=== PATIENT | male | born 1955 | race Caucasian/White ===

== ENCOUNTER 2016-11-24 11:57 | Emergency (ER) | payer MEDICARE ==
[~2016-11-24] VITALS: Ht 177.8 cm; Wt 88.5 kg
[2016-11-24 12:00] VITALS: BP 144/66
--- NOTE | 2016-11-24 12:47 | RAD ---
Indication injury, pain. AP oblique and lateral views of the right ankle were obtained. No bony abnormality is seen.
--- NOTE | 2016-11-24 13:30 | ED.ADGEN ---
Past History Past Medical History: CAD, Cancer, Hypertension Past Surgical History: Coronary Bypass Surgery Alcohol Use: Occasionally Drug Use: None Adult General Chief Complaint Chief Complaint Right ankle/foot injury HPI HPI Patient is a 61-year-old male presents with right foot injury. Patient states he inverted right ankle yesterday while getting out of shower. Patient reports pain with ambulation, continued swelling and pain. Although symptoms have improved since yesterday. Patient denies though she injury. He recently relocated from [place] to the [facility] and has yet to establish with a PCP. Review of Systems Review of Systems Review symptoms as per history of present illness. Physical Exam Physical Exam Constitutional: Well developed, well nourished, no acute distress, non-toxic appearance. Extremities: Right foot, right medial ankle and midfoot pain, tenderness, swelling with mild erythema. No bony TTP or deformity. ROM intact. Neurologic: Alert and oriented X 3, normal motor function, normal sensory function, no focal deficits noted. Psychologic: Affect normal, judgement normal, mood normal. Current Patient Data Vital Signs Vital Signs Date Time Temp Pulse Resp B/P (MAP) Pulse Ox O2 Delivery O2 Flow Rate FiO2 11/24/16 12:00 97.6 66 16 95 Room Air EKG EKG [] Radiology/Procedures Radiology/Procedures [XR Right ankle: No obvious displaced fracture per radiology report.] Course & Med Decision Making Course & Med Decision Making Pertinent Labs and Imaging studies reviewed. (See chart for details) [] Final Impression Final Impression [Right ankle sprain] Problems: Dragon Disclaimer Dragon Disclaimer This electronic medical record was generated, in whole or in part, using a voice recognition dictation system. DEMETRA WEAVER DO Nov 24, 2016 13:30
== END 2016-11-24 13:12 | disposition home or self-care (01) ==
LOC: ER 11:57
DX: S93.401A Sprain of unspecified ligament of right ankle, initial encounter (principal); I10 Essential (primary) hypertension; I25.810 Atherosclerosis of coronary artery bypass graft(s) without angina pectoris; X50.9XXA Other and unspecified overexertion or strenuous movements or postures, initial encounter; Y93.E1 Activity, personal bathing and showering; Y92.89 Other specified places as the place of occurrence of the external cause; Y99.8 Other external cause status
CPT/HCPCS: 73610; 99284